=== PATIENT | male | born 2005 | race Two or more races ===

== ENCOUNTER 2023-08-22 05:39 | Emergency (ER) | payer OTHER ==
[~2023-08-22] VITALS: Ht 172.7 cm; Wt 59.9 kg
[2023-08-22] MEDS ORDERED: IBUprofen 600 MG TABLET PO ONE (09:00)
[2023-08-22 09:23] LABS: HEMATOCRIT 43.2 % (39.0-48.0); HEMOGLOBIN 14.4 g/dL (13-16.00); MEAN CELL VOLUME 79.5 fL (80.0-100.00); MEAN CORPUSCULAR HEMOGLOBIN 26.6 pg (27.00-32.0); MEAN CORPUSCULAR HGB CONC 33.4 g/dl (32.0-36.0); PLATELET COUNT 274 K/uL (150-450); RED BLOOD COUNT 5.44 M/uL (4.00-6.00); RED CELL DISTRIBUTION WIDTH 14.4 % (11.5-14.5)
[2023-08-22] MEDS ORDERED: 0.9 % SODIUM CHLORIDE 1,000 ML IV SCH (12:30)
[2023-08-22 12:59] LABS: ABG PH 7.445 (7.35-7.45); ABG PO2 75.5 mmHg (80-100); ABG pCO2 34.4 mmHg (35-45); BASE EXCESS -0.3 mmol/l; BICARBONATE 23.1 mmol/l (23-25); SaO2 95.6 %; Tco2 24.2 mmol/l
[2023-08-22 13:00] LABS: allen test SATISFACTORY; puncture site RADIAL RIGHT
[2023-08-22 13:01] LABS: o2 21 %
[2023-08-22] MEDS ORDERED: ALBUTEROL SULFATE 3 ML/2.5 MG AMPUL.NEB IH SCH (19:00)
[2023-08-22] MEDS ORDERED: METHYLPREDNISOLONE SOD SUCC 125 MG VIAL IV ONE (19:00)
[2023-08-22 19:41] LABS: ALBUMIN 3.8 gm/dL (3.4-5.0); BILIRUBIN TOTAL 1.61 mg/dL (0.3-1.2); CALCIUM 8.7 mg/dL (8.5-10.1); CREATININE SERUM 0.91 mg/dL (0.70-1.30); GFR 107.33; GLOBULINA 4.4 G/DL (2.4-3.5); POTASSIUM 3.6 mEq/L (3.5-5.1); TOTAL PROTEIN 8.2 gm/dL (6.4-8.2)
== END 2023-08-22 21:22 | disposition home or self-care (01) ==
LOC: ER 05:40 → EMR PED 05:40
PROVIDERS: Emergency Medicine; Pediatrics
DX: J06.9 Acute upper respiratory infection, unspecified (principal); Z20.822 Contact with and (suspected) exposure to COVID-19